=== PATIENT | female | born 1950 | race Caucasian/White ===

== ENCOUNTER 2016-07-09 20:47 | Emergency (ER) | payer MEDICARE ==
[~2016-07-09 20:47] MED LIST: ZOLOFT50 MG PO
[2016-07-09 22:24] LABS: HEMOGLOBIN 13.9 gm/dl (12.3-15.3); RED BLOOD COUNT 4.85 M/UL (4.00-5.10); WHITE BLOOD COUNT 4.6 K/UL (4.5-11.0)
[2016-07-09 22:53] LABS: BUN/CREATININE RATIO 18 (0-10)
== END 2016-07-10 | disposition home or self-care (01) ==
LOC: ER1 20:47
PROVIDERS: Family Medicine
DX: S80.812A Abrasion, left lower leg, initial encounter (principal); S80.811A Abrasion, right lower leg, initial encounter; F03.90 Unspecified dementia, unspecified severity, without behavioral disturbance, psychotic disturbance, mood disturbance, and anxiety; I25.10 Atherosclerotic heart disease of native coronary artery without angina pectoris; Z90.49 Acquired absence of other specified parts of digestive tract; Z88.6 Allergy status to analgesic agent; X58.XXXA Exposure to other specified factors, initial encounter
CPT/HCPCS: 36415; 51702; 71010; 80053; 81001; 82550; 82553; 83605; 83874; 84484; 85025; 87086; 99284